=== PATIENT | female | born 1960 | race Caucasian/White ===

== ENCOUNTER → 2020-01-04 10:14 | Outpatient (BNVA) | payer BC, SELFPAY | PROVIDERS: Family Provider Family Medicine; PCP Family Medicine; Visit Provider Family Medicine | DX: I10 Essential (primary) hypertension (principal) | CPT/HCPCS: 82044; 85025 ==

== ENCOUNTER → 2020-01-31 10:34 | Outpatient (BNVA) | payer BC, SELFPAY | PROVIDERS: Family Provider Family Medicine; PCP Family Medicine; Visit Provider Family Medicine | DX: I10 Essential (primary) hypertension (principal) | CPT/HCPCS: 80048; 80061 ==

== ENCOUNTER → 2020-08-08 10:44 | Outpatient (BNVA) | payer BC, SELFPAY | PROVIDERS: Family Provider Family Medicine; PCP Family Medicine; Visit Provider Family Medicine | DX: Z01.818 Encounter for other preprocedural examination (principal); Z13.6 Encounter for screening for cardiovascular disorders | CPT/HCPCS: 71046; 80053; 85025 ==

== ENCOUNTER → 2020-08-25 11:12 | Outpatient (BNVA) | payer BC, SELFPAY | PROVIDERS: Family Provider Family Medicine; PCP Family Medicine; Visit Provider Family Medicine | DX: Z20.822 Contact with and (suspected) exposure to COVID-19 (principal) | CPT/HCPCS: 87635 ==

== ENCOUNTER → 2022-03-29 13:41 | Outpatient (BNVA) | payer BC, SELFPAY | PROVIDERS: Family Provider Family Medicine; PCP Family Medicine; Visit Provider Family Medicine | DX: I10 Essential (primary) hypertension (principal) | CPT/HCPCS: 80053; 80061; 82043; 85025 ==

== ENCOUNTER 2022-04-04 08:24 | Outpatient (CLI) | payer BC, SELFPAY ==
--- NOTE | 2022-04-04 08:36 | MM_ITS ---
WS: [id number] Bilateral screening 3D tomosynthesis digital mammogram, 04/04/2022 Clinical Data: screening mammogram Comparison: 02/01/2019, 10/29/2017, 10/28/2016 Findings: The breast parenchymal pattern shows fibroglandular tissue. No spiculated masses or clustered calcifi cations are seen. There are no secondary signs of carcinoma. MM/[place] [id number] Impression: 1. Negative bilateral mammogram unchanged. 2. Recommend annual screening mammograms. BIRADS: 1-Negative FOLLOW UP: 1 Year Follow-up The CAD cylinder checker was used.
== END 2022-04-04 08:25 | disposition home or self-care (01) ==
LOC: RAD 08:26
PROVIDERS: PCP Family Medicine; Visit Provider Family Medicine
DX: Z12.31 Encounter for screening mammogram for malignant neoplasm of breast (principal)
CPT/HCPCS: 77063; 77067

== ENCOUNTER → 2022-10-04 09:18 | Outpatient (BNVA) | payer OTHER, SELFPAY | PROVIDERS: PCP Family Medicine; Visit Provider Family Medicine | DX: I10 Essential (primary) hypertension (principal); M54.42 Lumbago with sciatica, left side; G89.29 Other chronic pain | CPT/HCPCS: 80048 ==

== ENCOUNTER → 2023-06-02 10:50 | Outpatient (BNVA) | payer OTHER, SELFPAY | PROVIDERS: PCP Family Medicine; Visit Provider Nurse Practitioner | DX: R51.9 Headache, unspecified (principal); J40 Bronchitis, not specified as acute or chronic | CPT/HCPCS: 87400 ==

== ENCOUNTER → 2023-10-24 09:30 | Outpatient (BNVA) | payer OTHER, SELFPAY | PROVIDERS: PCP Family Medicine; Visit Provider Family Medicine | DX: I10 Essential (primary) hypertension (principal); E66.9 Obesity, unspecified | CPT/HCPCS: 80053; 80061; 82043; 85025 ==

== ENCOUNTER → 2024-08-04 08:40 | Outpatient (BNVA) | payer OTHER, SELFPAY | PROVIDERS: PCP Family Medicine; Visit Provider Family Medicine | DX: I10 Essential (primary) hypertension (principal) | CPT/HCPCS: 80048; 80061 ==

== ENCOUNTER → 2024-08-14 15:23 | Outpatient (BNVA) | payer OTHER, SELFPAY | PROVIDERS: PCP Family Medicine; Visit Provider Registered Nurse Neonatal Intensive Care | DX: R50.9 Fever, unspecified (principal) | CPT/HCPCS: 87400 ==

== ENCOUNTER 2025-01-17 23:26 | Emergency (ER) | payer OTHER, SELFPAY ==
--- OUTSIDE RECORDS SUMMARY | 2025-01-10 04:34 | XMS_ITS ---
Author Organization [facility] Address [address] [place] [address] Support Name Relationship Address , Cristian Beaver Emergency Contact Unknown Unavailable Aster Beaver Guarantor Unknown [phone] Care Team Providers Care Pick Up Attendant Name Role Phone Yun El Primary Care Provider UnavailLorri Garnett Unavailable [phone] Cindy Vu Unavailable [phone] REASON FOR VISIT Wp Rx Refill Medications Medication SIG (Take, Route, Frequency, Duration) Notes Start Date End Date Status Buprenorphine HCl-Naloxone HCl 2-0.5 MG 1 film under the tongue and allow to dissolve Sublingual Once a day for 30 days Fill on 01-10-25 01/10/2025 02/09/2025 Active Encounters Encounter Location Date Provider Diagnosis [facility] [place] [address] [place] [address] 01/10/2025 Cindy Vu Opioid dependence, uncomplicated F11.20 Assessments Encounter Date Diagnosis (ICD Code) Assessment Notes Treatment Notes Treatment Clinical Notes Section Notes 01/10/2025 Opioid dependence, uncomplicated (ICD-10 - F11.20) Plan Of Treatment Medication Medication Name Sig Start Date Stop Date Notes Buprenorphine HCl-Naloxone HCl 2-0.5 MG 1 film under the tongue and allow to dissolve Sublingual Once a day for 30 days 01/10/2025 02/09/2025 Fill on 01-10-25 Next Appt Details Provider Name:Lorri carter, 03/03/2025 08:20:00 AM, [address] [place], [address], Progress Notes * Ricarda BEAVEReDOB:1960 ([age] yo F)Acc No.[id number]:01/10/2025 Patient: Aster ROME :1960 A ge:64 Y S ex:Female Address:[facility] [place] [address] * Refills Refill Buprenorphine HCl-Naloxone HCl Film, 2-0.5 MG, Sublingual, 30 films, 1 film under the tongue and allow to dissolve, Once a day, 30 days, Refills=0 Subjective: * Chief Complaints: * W p Rx Refill * Medical History: * Surgical History: * Hospitalization/Major Diagno stic Procedure: * Medications: Objective: * Vitals: * Physical Examination: Assessment: * Assessment: 1. O pioid dependence, uncomplicated - F11.20 (Primary) Plan: * Treatment: * Procedure Codes: * true * Date: Generated for Tom wolfe/Niall/Michiitting on: 0 01/17/2025 11:32 PM CDT
--- OUTSIDE RECORDS SUMMARY | 2025-01-11 06:19 | XMS_ITS ---
Author Organization [facility] Address [address] [place] [address] Support Name Relationship Address , Cristian Beaver Emergency Contact Unknown Unavailable Aster Beaver Guarantor Unknown [phone] Care Team Providers Care Raiser Helper Name Role Phone Yun El Primary Care Provider Unavaila Lorri Sanchez Unavailable [phone] Cindy Vu Unavailable [phone] REASON FOR VISIT Wp Pt Rx Refill Medications Medication SIG (Take, Route, Frequency, Duration) Notes Start Date End Date Status Buprenorphine HCl-Naloxone HCl 2-0.5 MG 1 film under the tongue and allow to dissolve Sublingual Once a day for 30 days Fill on 01-11-25 01/11/2025 02/10/2025 Active Encounters Encounter Location Date Provider Diagnosis [facility] [place] [address] [place] [address] 01/11/2025 Cindy Vu Opioid dependence, uncomplicated F11.20 Assessments Encounter Date Diagnosis (ICD Code) Assessment Notes Treatment Notes Treatment Clinical Notes Section Notes 01/11/2025 Opioid dependence, uncomplicated (ICD-10 - F11.20) Plan Of Treatment Medication Medication Name Sig Start Date Stop Date Notes Buprenorphine HCl-Naloxone HCl 2-0.5 MG 1 film under the tongue and allow to dissolve Sublingual Once a day for 30 days 01/11/2025 02/10/2025 Fill on 01-11-25 Next Appt Details Provider Name:Lorri carter, 03/03/2025 08:20:00 AM, [address] [place], [address], Progress Notes * Ricarda BEAVEReDOB:1960 ([age] yo F)Acc No.[id number]:01/11/2025 Patient: Aster ROME :1960 A ge:64 Y S ex:Female Address:[facility] [place] [address] [address] * Refills Refill Buprenorphine HCl-Naloxone HCl Film, 2-0.5 MG, Sublingual, 30 films, 1 film under the tongue and allow to dissolve, Once a day, 30 days, Refills=0 Subjective: * Chief Complaints: * W p Pt Rx Refill * Medical History: * Surgical History: * Hospitalization/Major Diagno stic Procedure: * Medications: Objective: * Vitals: * Physical Examination: Assessment: * Assessment: 1. O pioid dependence, uncomplicated - F11.20 Plan: * Treatment: * Procedure Codes: * true * Date: Generated for Tom wolfe/Niall/eTransmitting on: 0 01/17/2025 11:32 PM CDT
[2025-01-17 23:31] VITALS: BP 94/62; PULSE 89; RESP 20; TEMP 36.4; O2SAT 97; BMI 28.7
--- OUTSIDE RECORDS SUMMARY | 2025-01-17 23:32 | XMS_ITS | Encounter Summary ---
Author Organization [facility] Address [address] [place] [address] Care Team Providers Care Chief Human Resources Officer Name Role Phone [facility], External Provider Primary Care Provider [phone] Encounter Details Date Type Department Care Team (Late st Contact Info) Description 09/13/2020 Telephone [facility] Inpatient [address] [place] [phone] Eddy Wang MD [address] [place] [phone] Social History Tobacco Use Types Packs/Day Years Used Date Smoking Tobacco: Former Cigarettes 1 40 1 - 07/13/2020 Smokeless Tobacco: Never Alcohol Use Standard Drinks/Week Comments Not Currently 0 (1 standard drink = 0.6 oz pur e alcohol) Comments No Sex and Gender Information Value Date Recorded Sex Assigned at Not on file Legal Sex Female 7:18 AM ADVANCED PRACTICE PROFESSIONAL Gender Identity Not on file Sexual Orientation Not on file COVID-19 Exposure Response Date Recorded In the last month, have you been in contact with someone who was confirmed or suspected to have Coronavirus / COVID-19? No / Unsure 09/13/2020 8:35 AM ADVANCED PRACTICE PROFESSIONAL documented as of this encounter Plan of Treatment Not on file documented as of this encounter Visit Diagnoses Not on filedocumented in this encounter Care Teams Chief Human Resources Officer Relationship Specialty Start Date End Date [facility], External Provider [address] [place] [address] PCP - General Family Practice 07/13/20 documented as of this encounter
--- OUTSIDE RECORDS SUMMARY | 2025-01-17 23:32 | XMS_ITS | Clinical Summary ---
Author Organization [facility] Address [address] [place] [address] Phone Care Team Providers Care Administrative Services Officer Name Role Phone [facility], External Provider Primary Care Provider [phone] Allergies No known active allergies Medications oxyCODONE-acetam inophen (PERCOCET) 10-325 mg TabletIndication s:Status post total replacement of right hip Take 1 Tablet by mouth every 4 hours as needed for Pain, Severe. Max Daily Amount: 6 Tablets 42 Tablet 0 1 Active famotidine (PEPCID) 20 mg tablet Take 20 mg by mouth daily. 1 Active sennosides-docus ate sodium (SENNA-S) 8.6-50 mg tablet Take 1 Tablet by mouth daily. 1 Active timolol hemihydrate (BETIMOL) 0.5% solution Administer 1 Drop in right eye 2 times daily. 1 Active losartan (COZAAR) 50 mg tablet Take 50 mg by mouth daily. 1 Active hydroCHLOROthiaz esa (HYDRODIURIL) 12.5 mg tablet Take 12.5 mg by mouth daily. 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 Obesity (BMI 30.0-34.9) 09/06/2020 Resolved Problems Problem Noted Date Diagnosed Date Resolved Date Primary osteoarthritis of right hip 09/06/2020 09/07/2020 Preoperative general physical examination 09/06/2020 09/06/2020 Family History Medical History Relation Name Comments Healthy Daughter 1 Healthy Daughter 2 Unknown Father Estranged Arthritis-osteo Mother Healthy Mother Breast Cancer Sister 1 Cancer Sister 2 Multiple Myelom a Relation Name Status Comments Brother none Daughter 1 Alive Daughter 2 Alive Father Mother Alive Sister 1 Alive Sister 2 Alive Son none Social History Tobacco Use Types Packs/Day Years Used Date Smoking Tobacco: Former Cigarettes Q uit: 07/13/2020 Smokeless Tobacco: Never Alcohol Use Standard Drinks/Week Comments Not Currently 0 (1 standard drink = 0.6 oz pur e alcohol) Comments Unknown Sex and Gender Information Value Date Recorded Sex Assigned at Not on file Legal Sex Female 10:17 PM SECURITY ASSURANCE ANALYST Gender Identity Not on file Sexual Orientation Not on file Last Filed Vital Signs Vital Sign Reading Time Taken Comments Blood Pressure 133/88 11/20/2020 9:58 AM CDT Pulse 93 11/20/2020 9:58 AM CDT Temperature 36.2 C (97.1 F) 09/09/2020 8:47 AM SECURITY ASSURANCE ANALYST Respiratory Rate 16 09/09/2020 8:47 AM SECURITY ASSURANCE ANALYST Oxygen Saturation - - Inhaled Oxygen Concentration - - Weight 86.6 kg (191 lb) 11/20/2020 9:58 AM CDT Height 167.6 cm (5' 6 ) 11/20/2020 9:58 AM CDT Body Mass Index 30.83 11/20/2020 9:58 AM CDT Plan of Treatment Health Maintenance Due Date Last Done Comments DTAP/TDAP/TD VACCINES (1 - Tdap) 1979 HPV/Cotest (21-29) 1981 CERVICAL CANCER SCREENING 1990 HPV/Cotest (30-65) 1990 PAP SMEAR 1990 BREAST CANCER SCREENING 2000 COLORECTAL SCREENING 2005 Colorectal Cancer Screening 2005 FIT-DNA Q 3 years 2005 FIT/FOBT Q 1 year 2005 Flex Sig/CT Colonography Q 5 years 2005 ZOSTER VACCINE (1 of 2) 2010 INFLUENZA VACCINE (#1) 2025 RSV VACCINE (60+ or ) (1 - 1-dose 75+ series) 2035 Medical Devices Implanted Type Area High [employer] Foreign Language Tutor Device Identifier Shelf Expiration Date Model / Serial / Lot Cup Pinn Sctr Series 52mm 1217-22-052 - [id number] Implanted:Qty: 1 on 09/07/2020 by Eddy Carver MD Hip Right: Hip [employer] [id number] 07/13/2030 [id number] / / [id number] Head Fem Art/Fredi Cer Sz36 1368-62-330 - [id number] Implanted:Qty: 1 on 09/07/2020 by Eddy Carver MD Hip Right: Hip [employer] [id number] 05/13/2025 1360-36330 / / [id number] Hole Eliminator [place] 1246-000 - [id number] Implanted:Qty: 1 on 09/07/2020 by Eddy Carver MD Hip Right: Hip [employer] [id number] 07/13/2030 124000 / / [id number] Liner Pinn Altrx Poly 1221-36-052 - [id number] Implanted:Qty: 1 on 09/07/2020 by Eddy Carver MD Hip Right: Hip [employer] [id number] 08/13/2025 [id number] / / [id number] Stem Fem Actis Colr Std Sz5 1010-11-050 - [id number] Implanted:Qty: 1 on 09/07/2020 by Eddy Carver MD Hip Right: Hip [employer] [id number] 08/13/2030050 / / [id number] Insurance * Guarantor: ASTER BEAVER Account Type Relation to Patient Date of Phone Billing Address Personal/Family [address] [place] [address] RX [employer] (INTERNAL) [facility] RX [employer] RX Member Subscriber Plan / Payer (Ef fective 2020-Present) Name:Aster Beaver Adan Relation to Subscriber:Self Name:Aster Beaver Adan Subscriber ID:Not on file Payer ID:Not on file Group ID:[id number] Type:RX Commercial Address: [place], [place] Care Teams Administrative Services Officer Relationship Specialty Start Date End Date [facility], External Provider [address] [place] [address] PCP - General Family Practice 07/13/20
--- OUTSIDE RECORDS SUMMARY | 2025-01-17 23:32 | XMS_ITS | Clinical Summary ---
Author Organization [facility] Address [address] [place] [address] Phone Care Team Providers Care Dry Mop Maker Name Role Phone [facility], External Provider Primary Care Provider [phone]- [phone] Allergies No known active allergies Medications losartan (COZAAR) 50 mg tablet Take 50 mg by mouth daily. Active hydroCHLOROthiaz esa (HYDRODIURIL) 12.5 mg tablet Take 12.5 mg by mouth daily. Active famotidine (PEPCID) 20 mg tablet Take 20 mg by mouth daily. Active timolol hemihydrate (BETIMOL) 0.5% solution Administer 1 Drop in right eye 2 times daily. Active sennosides-docus ate sodium (Colace 2-In-1) 8.6-50 mg tablet Take 1 Tablet by mouth daily. Active oxyCODONE-acetam inophen (PERCOCET) 10-325 mg TabletIndication s:Status post total replacement of right hip Take 1 Tablet by mouth every 4 hours as needed for Pain, Severe. 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 Obesity (BMI 30.0-34.9) 09/06/2020 Resolved Problems Problem Noted Date Diagnosed Date Resolved Date Preoperative general physical examination 09/06/2020 09/06/2020 Primary osteoarthritis of right hip 09/06/2020 09/07/2020 Family History Medical History Relation Name Comments [...] on file Legal Sex Female 7:18 AM SOLUTION ENGINEER Gender Identity Not on file Sexual Orientation Not on file Last Filed Vital Signs Vital Sign Reading Time Taken Comments Blood Pressure 133/88 11/20/2020 9:58 AM CDT Pulse 93 11/20/2020 9:58 AM CDT Temperature 36.2 C (97.1 F) 09/09/2020 8:47 AM SOLUTION ENGINEER Respiratory Rate 16 09/09/2020 8:47 AM SOLUTION ENGINEER Oxygen Saturation 95% 09/09/2020 8:47 AM SOLUTION ENGINEER Inhaled Oxygen Concentration - - Weight 86.6 [...] series) 2035 Medical Devices Implanted Type Area Industrial Editor Device Identifier Shelf Expiration Date Model / Serial / Lot Cup Pinn Sctr Series 52mm 1217-22-052 - [id number] Implanted:Qty: 1 on 09/07/2020 by Eddy Carver MD at [facility] Hip Right: Hip [employer] [id number] 07/13/2030 [id number] / / [id number] Hole Eliminator [place] 1246-03000 - [id number] Implanted:Qty: 1 on 09/07/2020 by Eddy Carver MD at [facility] Hip Right: Hip [employer] [id number] 07/13/2030 124000 / / [id number] Liner Pinn Altrx Poly 1221-36-052 - [id number] Implanted:Qty: 1 on 09/07/2020 by Eddy Carver MD at [facility] Hip Right: Hip [employer] [id number] 08/13/2025 [id number] / / [id number] Stem Fem Actis Colr Std Sz5 1010-11-050 - [id number] Implanted:Qty: 1 on 09/07/2020 by Eddy Carver MD at [facility] Hip Right: Hip [employer] [id number] 08/13/2030 1010-11-050 / / [id number] Head Fem Art/Fredi Cer Sz36 1365-36-330 - [id number] Implanted:Qty: 1 on 09/07/2020 by Eddy Carver MD at [facility] Hip Right: Hip [employer] [id number] 05/13/2025 1365-36330 / / [id number] Insurance RX [employer] RX Member Subscriber Plan / Payer (Ef fective 2020-Present) Name:Aster Beaver Relation to Subscriber:Self Name:ASTER BEAVER Subscriber ID:Not on file Payer ID:Not on file Group ID:[id number] Type:RX Commercial Address: [facility] [employer] PL[employer] (INTERNAL) [facility] MEDICAL DESTINATIONS Advance Directives For more information, please contact: [phone] * Full Code (Latest Code Status on File) Date Activated Date Inactivated Comments 09/07/2020 12:31 PM 09/09/2020 1:12 PM * Full Code Date Activated Date Inactivated Comments 09/07/2020 6:50 AM 09/07/2020 12:30 PM Care Teams Dry Mop Maker Relationship Specialty Start Date End Date [facility], External Provider [address] [place] [address] PCP - General Family Practice 07/13/20
--- OUTSIDE RECORDS SUMMARY | 2025-01-17 23:32 | XMS_ITS | Patient Health Record ---
Author Organization [facility] Address [address] [place] [address] Support Name Relationship Address , Cristian Kent Emergency Contact Unknown Unavailable Aster Kent Guarantor Unknown [phone] Care Team Providers Care Infant Childcare Provider Name Role Phone Yun El Primary Care Provider Unavaila Lorri Sanchez Unavailable [phone] Migration, Provider Unavailable Unavailable MirellaCindy Unavailable [phone] Daniella Razo Unavailable [phone] Allergies No Known Allergies Results Component Value Reference Range Notes Urine Drug Screen (cup read) - [id number] Reviewed date:07/13/2024 01:05:15 PM Interpretation: Performing Lab: Notes/Report: BUP POS BZO POS zzzUrine Drug Screen (confir mation by instrument) - [id number] Reviewed date:07/13/2024 01:06:41 PM Interpretation: Performing Lab: Notes/Report: Tox Results Reviewed date:11/09/2024 02:28:23 PM Interpretation: Performing Lab: Notes/Report: Urine Drug Screen (cup read) - [id number] Reviewed date:12/30/2024 08:28:49 AM Interpretation: Performing Lab: Notes/Report: BUP + Urine Confirmation Panel (in strument) - [id number] Reviewed date:11/09/2024 11:03:33 AM Interpretation: Performing Lab: Notes/Report: 6-Acetylmorphine 0 <6 ng/mL This test w as developed and its performance characteristics determined by [facility]. It has not been cleared or approved by the U.S. Food and Drug Administration. 7-Aminoclonazepam 0 <60 ng/mL This test was developed and its performance characteristics determined by [facility]. It has not been cleared or approved by the U.S. Food and Drug Administration. Alprazolam 20 <60 ng/mL This test was d oracioeloped and its performance characteristics determined by [facility]. It has not been cleared or approved by the U.S. Food and Drug Administration. Amphetamine 0 <75 ng/mL This test was d eveloped and its performance characteristics determined by [facility]. It has not been cleared or approved by the U.S. Food and Drug Administration. aOH-Alprazolam 31 <60 ng/mL This test was developed and its performance characteristics determined by [facility]. It has not been cleared or approved by the U.S. Food and Drug Administration. Buprenorphine 57.6 <7.5 ng/mL This test was developed and its performance characteristics determined by [facility]. It has not been cleared or approved by the U.S. Food and Drug Administration. Norbuprenorphine 258.1 <37.5 ng/mL This test w as developed and its performance characteristics determined by [facility]. It has not been cleared or approved by the U.S. Food and Drug Administration. Carisoprodol 0 <75 ng/mL This test was d eveloped and its performance characteristics determined by [facility]. It has not been cleared or approved by the U.S. Food and Drug Administration. Codeine 0 <75 ng/mL This test was d eveloped and its performance characteristics determined by [facility]. It has not been cleared or approved by the U.S. Food and Drug Administration. EDDP 0 <75 ng/mL This test was d eveloped and its performance characteristics determined by [facility]. It has not been cleared or approved by the U.S. Food and Drug Administration. Fentanyl 0 <6 ng/mL This test was d eveloped and its performance characteristics determined by [facility]. It has not been cleared or approved by the U.S. Food and Drug Administration. Hydrocodone 0 <75 ng/mL This test was d eveloped and its performance characteristics determined by [facility]. It has not been cleared or approved by the U.S. Food and Drug Administration. Hydromorphone 0 <75 ng/mL This test was developed and its performance characteristics determined by [facility]. It has not been cleared or approved by the U.S. Food and Drug Administration. Lorazepam 0 <60 ng/mL This test was d eveloped and its performance characteristics determined by [facility]. It has not been cleared or approved by the U.S. Food and Drug Administration. MDMA 0 <75 ng/mL This test was d eveloped and its performance characteristics determined by [facility]. It has not been cleared or approved by the U.S. Food and Drug Administration. Meperidine 0.0 <37.5 ng/mL This test was d eveloped and its performance characteristics determined by [facility]. It has not been cleared or approved by the U.S. Food and Drug Administration. Meprobamate 0 <75 ng/mL This test was d eveloped and its performance characteristics determined by [facility]. It has not been cleared or approved by the U.S. Food and Drug Administration. Methamphetamine 0 <75 ng/mL This test wa s developed and its performance characteristics determined by [facility]. It has not been cleared or approved by the U.S. Food and Drug Administration. Methadone 0 <75 ng/mL This test was d eveloped and its performance characteristics determined by [facility]. It has not been cleared or approved by the U.S. Food and Drug Administration. Morphine 0 <75 ng/mL This test was d eveloped and its performance characteristics determined by [facility]. It has not been cleared or approved by the U.S. Food and Drug Administration. Nordiazepam 0 <60 ng/mL This test was d eveloped and its performance characteristics determined by [facility]. It has not been cleared or approved by the U.S. Food and Drug Administration. Norfentanyl 0 <6 ng/mL This test was d eveloped and its performance characteristics determined by [facility]. It has not been cleared or approved by the U.S. Food and Drug Administration. Normeperidine 0.0 <37.5 ng/mL This test was developed and its performance characteristics determined by [facility]. It has not been cleared or approved by the U.S. Food and Drug Administration. O-desmethyltramadol 0 <75 ng/mL This kelvin t was developed and its performance characteristics determined by [facility]. It has not been cleared or approved by the U.S. Food and Drug Administration. Oxazepam 0 <60 ng/mL This test was d eveloped and its performance characteristics determined by [facility]. It has not been cleared or approved by the U.S. Food and Drug Administration. Oxycodone 0.0 <37.5 ng/mL This test was d eveloped and its performance characteristics determined by [facility]. It has not been cleared or approved by the U.S. Food and Drug Administration. Oxymorphone 0 <75 ng/mL This test was d eveloped and its performance characteristics determined by [facility]. It has not been cleared or approved by the U.S. Food and Drug Administration. Phencyclidine 0.0 <7.5 ng/mL This test was developed and its performance characteristics determined by [facility]. It has not been cleared or approved by the U.S. Food and Drug Administration. Tapentadol 0.0 <37.5 ng/mL This test was d eveloped and its performance characteristics determined by [facility]. It has not been cleared or approved by the U.S. Food and Drug Administration. Temazepam 0 <60 ng/mL This test was d eveloped and its performance characteristics determined by [facility]. It has not been cleared or approved by the U.S. Food and Drug Administration. Tramadol 0 <75 ng/mL This test was d eveloped and its performance characteristics determined by [facility]. It has not been cleared or approved by the U.S. Food and Drug Administration. Norhydrocodone 0 <75 ng/mL This test was developed and its performance characteristics determined by [facility]. It has not been cleared or approved by the U.S. Food and Drug Administration. Noroxycodone 0 <38 ng/mL This test was d eveloped and its performance characteristics determined by [facility]. It has not been cleared or approved by the U.S. Food and Drug Administration. Pregabalin 0 <225 ng/mL This test was d eveloped and its performance characteristics determined by [facility]. It has not been cleared or approved by the U.S. Food and Drug Administration. Gabapentin >00748 <225 ng/mL This test was d eveloped and its performance characteristics determined by [facility]. It has not been cleared or approved by the U.S. Food and Drug Administration. Benzoylecgonine 0.0 <37.5 ng/mL This test wa s developed and its performance characteristics determined by [facility]. It has not been cleared or approved by the U.S. Food and Drug Administration. 4-Hydroxy Xylazine 0 <25 ng/mL This test was developed and its performance characteristics determined by [facility]. It has not been cleared or approved by the U.S. Food and Drug Administration. Urine Drug Screen (cup read) - [id number] Reviewed date:11/04/2024 08:59:44 AM Interpretation: Performing Lab: Notes/Report: BUP + BZO + Urine Drug Screen (cup read) - 30714 Reviewed date:09/09/2024 09:10:49 AM Interpretation: Performing Lab: Notes/Report: BZO + Reason For Referral No Information Medications Medication SIG (Take, Route, Frequency, Duration) Notes Start Date End Date Status Buprenorphine HCl-Naloxone HCl 2-0.5 MG 1 film under the tongue and allow to dissolve Sublingual Once a day for 30 days Fill on 01-11-25 01/11/2025 5 Active Meloxicam 15 MG 1 tablet Orally Once a day for 30 days As needed Fill 30 days from previous RX 12/30/2024 5 Active hydroCHLOROthiazide *Pick strength-form from [facility] for eRX* Active tiZANidine HCl 4 MG 1 tablet Orally Once a day for 30 days As needed Fill 30 days from previous RX 12/30/2024 5 Active Losartan *Reorder from [facility] for eRx and Interaction Alerts* Active Aspirin *Pick strength-form from [facility] for eRX* Active Problems Problem Type SNOMED Code ICD Code Onset Dates Problem Status W/U Status Risk Notes Problem Opioid dependence (80191800) Opioid dependence, uncomplicated (F11.20) Active confirmed Problem Chronic pain syndrome (724408393) Chronic pain syndrome (G89.4) 01/01/20 Active confirmed Problem Localized, primary osteoarthritis of the pelvic region and thigh (152398772) Unilateral primary osteoarthritis, right hip (M16.11) 01/01/20 Active confirmed Problem Spinal stenosis of lumbar region (41302661) Spinal stenosis, lumbosacral region (M48.07) 01/01/20 Active confirmed Problem Degeneration of lumbosacral intervertebral disc (49065730) Other intervertebral disc degeneration, lumbosacral region (M51.37) 01/01/20 Active confirmed Problem Lumbosacral radiculopathy (3933628) Radiculopathy, lumbosacral region (M54.17) 01/01/20 Active confirmed Problem Total hip replacement Prosthesis (319131462) Presence of right artificial hip joint (Z96.641) 01/01/20 24 Active confirmed Vital Signs Height-cm 167.64 cm 12/30/2024 Weight-kg 83.92 kg 12/30/2024 Height 66 in 12/30/2024 Weight 185 lbs 12/30/2024 BMI 29.86 kg/m2 12/30/2024 Encounters Encounter Location Date Provider Diagnosis [facility] [address] [address] 03/11/2024 Lorri Gallardo [facility] [address] [address] 05/13/2024 Lorri Gallardo [facility] [address] [address] 07/09/2024 Cindy Vu Opioid dependence, uncomplicated F11.20 ; Chronic pain syndrome G89.4 ; Degeneration of intervertebral disc of lumbosacral region with discogenic back pain M51.370 ; Radiculopathy, lumbosacral region M54.17 ; Spinal stenosis, lumbosacral region M48.07 ; Pain in right leg M79.604 ; Unilateral primary osteoarthritis, right hip M16.11 and Pain in right hip M25.551 [facility] [place] [address] [place] [phone] 09/09/2024 Lorri Gallardo Opioid dependence, uncomplicated F11.20 and Chronic pain syndrome G89.4 [facility] [place] [address] [place] [phone] 11/04/2024 Lorri Gallardo Opioid dependence, uncomplicated F11.20 and Chronic pain syndrome G89.4 [facility] [place] [address] [place] [address] 12/30/2024 Lorri Gallardo Opioid dependence, uncomplicated F11.20 and Chronic pain syndrome G89.4 [facility] 0 0 05/08/2024 Provider Migration [facility] 0 0 05/09/2024 Provider Migration [facility] [place] [address] [place] [place] [place] [address] 07/12/2024 Cindy Vu [facility] [address] [place] [address] 08/12/2024 Cindy Vu [facility] [place] [address] [place] [place] [place] [address] 09/09/2024 Daniella Orellana-Gretchen e [facility] [place] [address] [place] [address] 11/04/2024 Cindy Vu [facility] [place] [address] [place] [address] 12/30/2024 Cindy Vu [facility] [place] [address] [place] [address] 01/07/2025 Cindy uV Opioid dependence, uncomplicated F11.20 [facility] [place] [address] [place] [address] 01/10/2025 Cindy Vu Opioid dependence, uncomplicated F11.20 [facility] [place] [address] [place] [address] 01/10/2025 Cindy Vu Opioid dependence, uncomplicated F11.20 [facility] [place] [address] [place] [address] 01/11/2025 Cindy Vu Opioid dependence, uncomplicated F11.20 [facility] [place] [address] [place] [place] [address] 01/11/2025 Cindy Mirella Opioid dependence, uncomplicated F11.20 Assessments Encounter Date Diagnosis (ICD Code) Assessment Notes Treatment Notes Treatment Clinical Notes Section Notes 07/09/2024 Opioid dependence, uncomplicated (ICD-10 - F11.20) 07/09/2024 Chronic pain syndrome (ICD-10 - G89.4) 01/10/2025 Opioid dependence, uncomplicated (ICD-10 - F11.20) 01/10/2025 Opioid dependence, uncomplicated (ICD-10 - F11.20) 01/11/2025 Opioid dependence, uncomplicated (ICD-10 - F11.20) 01/11/2025 Opioid dependence, uncomplicated (ICD-10 - F11.20) 09/09/2024 Opioid dependence, uncomplicated (ICD-10 - F11.20) 09/09/2024 Chronic pain syndrome (ICD-10 - G89.4) 11/04/2024 Opioid dependence, uncomplicated (ICD-10 - F11.20) Patient notes satisfaction with current treatment regimen and with response. The information in the [place] Prescription Monitoring Program is consistent. UDS for most recent clinic visit is confirmed as consistent after review by reference lab, showing only currently prescribed medications and appropriate metabolites. The buprenorphine and metabolite ratio indicated consistent compliance with dose schedule. UDS at point of service testing today continues to indicate consistent compliance. Patient will return to clinic in one month to continue maintenance phase therapy and monitoring levels. RECOMMEND URINE TESTING TODAY Urine drug screening will be performed today to monitor compliance with opioid therapy or to serve as a baseline screen for a patient who may be a candidate for opioid therapy in the future, pending UDS results. We will monitor with in-office testing (rapid testing) today and review the results prior to dispensing prescription. All positive results will be sent for quantitative analysis to ensure accuracy and quantify amounts. Any expected positive results that return negative will also be sent for quantitative analysis. Any questionable read or any medication we cannot test for in the office confidently will be sent for quantitative analysis, as well. Patient has been made aware of this policy and agrees to abide by our urine testing policy. 12/30/2024 Opioid dependence, uncomplicated (ICD-10 - F11.20) Patient notes satisfaction with current treatment regimen and with response. The information in the [place] Prescription Monitoring Program is consistent. UDS for most recent clinic visit is confirmed as consistent after review by reference lab, showing only currently prescribed medications and appropriate metabolites. The buprenorphine and metabolite ratio indicated consistent compliance with dose schedule. UDS at point of service testing today continues to indicate consistent compliance. Patient will return to clinic in one month to continue maintenance phase therapy and monitoring levels. URINE TESTING TODAY; POINT OF SERVICE Urine drug screening will be performed today to monitor compliance with opioid therapy or to serve as a baseline screen for a patient who may be a candidate for opioid therapy in the future, pending UDS results. We will monitor with in-office testing (rapid testing) today and review the results prior to dispensing prescription, as well. Patient has been made aware of this policy. 12/30/2024 Chronic pain syndrome (ICD-10 - G89.4) 01/07/2025 Opioid dependence, uncomplicated (ICD-10 - F11.20) 11/04/2024 Chronic pain syndrome (ICD-10 - G89.4) 07/09/2024 Degeneration of intervertebral disc of lumbosacral region with discogenic back pain (ICD-10 - M51.370) 07/09/2024 Radiculopathy, lumbosacral region (ICD-10 - M54.17) 07/09/2024 Spinal stenosis, lumbosacral region (ICD-10 - M48.07) 07/09/2024 Pain in right leg (ICD-10 - M79.604) 07/09/2024 Unilateral primary osteoarthritis, right hip (ICD-10 - M16.11) 07/09/2024 Pain in right hip (ICD-10 - M25.551) Plan Of Treatment Next Appt Details Provider Name:Lorri carter, 03/03/2025 08:20:00 AM, [address] [place], [address], Insurance Providers Payer Name Payer Address Payer Phone Subscriber Number Group Number Insured Name Patient Relationship to Insured Coverage Start Date Coverage End Date [facility] [address] [address] [place] [address] [id number] Aster Kent Self - patient is the insured Medical (General) History Surgical History Surgery Date(Month/Year) corneal transplant Rt. total hip - [facility]. [place] - Dr Alice Srivastava Since 09/07/2020
[2025-01-18] VITALS (8 sets, daily range): BP systolic 116–131; BP diastolic 77–84; PULSE 98–101; RESP 10–19; TEMP 37.1; O2SAT 93–99
--- NOTE | 2025-01-18 00:08 | ED_ITS ---
HPI - Extremity Problem General: Chief complaint: Extremity Injury, Upper Stated complaint: Fell hurt L arm and hit top of head Time Seen by Provider: 01/17/25 23:49 History of Present Illness: Patient presents approximately 1 hour after falling and hitting their arm and head against a brick wall. Patient reports loss of consciousness following impact with the wall, though duration is not specified. Patient states they lost balance leading to the fall. Last oral intake was a sandwich at approximately 8:00 PM. Patient denies any history of problems with anesthesia. Related Data Previous Rx's ?Medication ?Instructions ?Recorded bupropion HCl 150 mg tablet,12 hr 150 mg PO DAILY #90 tabs 08/04/24 sustained-release hydrochlorothiazide 25 mg tablet 25 mg PO DAILY #90 ta bs 08/04/24 losartan 50 mg tablet 50 mg PO DAILY #90 tabs 07/15 09/07 meloxicam 15 mg tablet 15 mg PO DAILY #90 tabs 07/15 09/07 molnupiravir 200 mg capsule (EUA) 800 mg (4 x 200 mg) PO Q12H 5 days 08/14/24 #40 caps valacyclovir 1 gram tablet 1,000 mg PO BID #6 tabs (Valtrex) gabapentin 300 mg capsule 300 mg PO TID #270 caps 08/15 03/07 hydrocodone 5 mg-acetaminophen 325 1 tab PO Q6H PRN pa in #14 tabs 01/18/25 mg tablet Allergies Allergy/AdvReac Type Severity Reaction Status Date / Time hydrocodone AdvReac Mild nausea Verified 01/18/25 02:21 Review of Systems General: Reports: 10 or more systems reviewed and unremarkable except in HPI and below PFSH ED PFSH: Medical History (Updated 01/18/25 @ 02:28 by Dayton Garcia DO) Chronic low back pain with sciatica Essential hypertension Surgical History H/O section History of eye surgery History of back surgery Family History Other Cancer Diabetes Social History (Updated 08/04/24 @ 08:21 by Osmel Pierson MD) Smoking and tobacco/nicotine status: former use of tobacco/nicotine Quit status (tobacco/nicotine): has quit using Year quit tobacco: 2020 Former quit date comment: 35PY Alcohol intake: never Substance/Drug Use: never Physical Exam Const: COMMON NORMALS: no acute distress, patient oriented x3, alert and well nourished HENMT: COMMON NORMALS: normocephalic HEAD & SCALP: normocephalic Eye: COMMON NORMALS: Equal, round and reactive pupils present, EOMs intact bilaterally and conjunctivae normal CONJUNCTIVA: Yes conjunctivae normal PUPIL: Yes Equal, round and reactive pupils present Resp: COMMON NORMALS: normal respiratory effort, No retractions, No use of accessory muscles, clear to auscultation bilaterally and percussion normal AUSCULTATION: clear to auscultation bilaterally PERCUSSION: percussion normal GI: COMMON NORMALS: Normal to inspection, nondistended, normoactive bowel sounds present, Soft to palpation, non-tender, No hepatosplenomegaly present, no masses and no bruits PALPATION: Yes Soft to palpation and Yes No hepatosplenomegaly present Extremity: NARRATIVE EXTREMITY EXAM: Obvious deformity of the left wrist. Pulses intact. Neuro: COMMON NORMALS: patient oriented x3 SENSORIUM/ORIENTATION: Yes alert Skin: COMMON NORMALS: no rashes or lesions noted, turgor normal and no jau ndice GENERAL SKIN EXAM: no rashes or lesions noted and turgor normal Course Vital Signs: Vital signs: Vital Signs Temperature 97.6 F 01/17/25 23:31 Pulse Rate 98 01/18/25 01:03 Respiratory Rate 13 01/18/25 01:03 Blood Pressure 127/79 01/18/25 01:03 Pulse Oximetry 96 01/18/25 01:03 Oxygen Delivery Me thod Room Air 01/18/25 01:03 MDM - Extremity (Nontraumatic) Medical Decision Making Patient has both bone distal forearm fracture with some significant displacement. We talked about the risk benefits alternatives and complications of a closed reduction and she was agreeable. Conscious sedation using propofol with the proper team members including respiratory assembled. This was easily reduced and then she was placed in a sugar-tong. We talked about the potential complications of this type of fracture. Patient was neurovascularly intact both pre and post sling application. Lab Data Radiology Impressions Wrist X-Ray 01/18/25 00:21 IMPRESSION: 1. Markedly comminuted intra-articular fracture of the distal left radius with mild dorsal displacement of multiple bone fragments and mild impaction and approximately 40 degrees of dorsal angulation of the distal fracture fragment. 2. Comminuted fracture of the base of the left ulnar styloid with 6 mm of lateral displacement of the distal fracture fragment. 3. Moderate soft tissue swelling at the distal left forearm and wrist. All radiology interpretation(s) finalized by discharge ED provider radiology interpretation(s): Comminuted displaced distal radial fracture Discharge Plan Discharge Patient Disposition: Home Clinical Impression: Distal radius fracture, left Condition: Stable Prescriptions: New hydrocodone-acetaminophen 5-325 mg tablet 1 tab PO Q6H PRN (Reason: pain) Qty: 14 0RF No Action bupropion HCl 150 mg tablet sustained-release 12 hr 150 mg PO DAILY Qty: 90 1RF hydrochlorothiazide 25 mg tablet 25 mg PO DAILY Qty: 90 1RF losartan 50 mg tablet 50 mg PO DAILY Qty: 90 1RF meloxicam 15 mg tablet 15 mg PO DAILY Qty: 90 1RF molnupiravir 200 mg capsule 800 mg PO Q12H 5 Days Qty: 40 0RF bupivacaine (PF) 0.5 % (5 mg/mL) solution 5 mg Infiltration ONCE Qty: 1 0RF lidocaine (PF) 10 mg/mL (1 %) solution 10 mg SUBCUT ONCE Qty: 1 0RF valacyclovir [Valtrex] 1 gram tablet 1,000 mg PO BID Qty: 6 4RF gabapentin 300 mg capsule 300 mg PO TID Qty: 270 3RF Discharge Orders: Discharge ED (Routine); Ordered 01/18/25 Ordered By: Dayton Garcia Referrals: Osmel Pierson MD [Primary Care Provider, [facility]] Discharge Diet: Advance as tolerated Discharge Activity: Resume usual activity Patient Instructions: Opioid Safety, Pain Management, Patient Portal & Elsie Instructions Activity Restrictions/Additional Instructions: 1. Wear sling and take ibuprofen and/or Tylenol as directed if severe pain take the prescription for hydrocodone but do not exceed more than 3000 mg of Tylenol in a given day. 2. Needs orthopedic follow-up in the next 3 to 5 days. Return here if worse or other significant concerns. Print Language: Portuguese Coding Level of Care Code ED Dentist/Owner for Jamie Mensah
--- NOTE | 2025-01-18 00:21 | XRR_ITS ---
PROCEDURE INFORMATION: Exam: XR Left Wrist Exam date and time: 01/18/2025 12:26 AM Age: 64 years old Clinical indication: Injury or trauma; Fall; Blunt trauma (contusions or hematomas); Wrist; Left; Additional info: Pain TECHNIQUE: Imaging protocol: Radiologic exam of the left wrist. Views: 1 or 2 views. COMPARISON: No relevant prior studies available. FINDINGS: Bones/joints: Markedly comminuted intra-articular fracture of the distal left radius with mild dorsal displacement of multiple bone fragments and mild impaction and approximately 40 degrees of dorsal angulation of the distal fracture fragment. Comminuted fracture of the base of the left ulnar styloid with 6 mm of lateral displacement of the distal fracture fragment. No dislocation. Normal bone mineralization. Soft tissues: Moderate soft tissue swelling at the distal left forearm and wrist. No soft tissue emphysema. No radiopaque foreign body. XR/XR wrist LT w scaphoid [id number] IMPRESSION: 1. Markedly comminuted intra-articular fracture of the distal left radius with mild dorsal displacement of multiple bone fragments and mild impaction and approximately 40 degrees of dorsal angulation of the distal fracture fragment. 2. Comminuted fracture of the base of the left ulnar styloid with 6 mm of lateral displacement of the distal fracture fragment. 3. Moderate soft tissue swelling at the distal left forearm and wrist.
--- NOTE | 2025-01-18 03:00 | PC.NURSE ---
Conscious sedation performed with Dr Garcia, [facility], [facility] and this RN. Left radial fracture reduced, sugar tong splint applied. Arm placed in sling. patient tolerated well.
[2025-01-18] MEDS: HYDROcodone-acetaminophen 5-325 mg Tablet 1 TAB PO (03:31)
[2025-01-18] MEDS: oxyCODONE-APAP 5-325 mg Tablet 1 TAB PO (03:39)
--- NOTE | 2025-01-18 04:10 | PC.NURSE ---
Patient was allergic to Hydrocodone and was not determined until after package was opened. Hydrocodone was wasted with witness Byron Garcia RN. Dr Garcia was notified and prescription that was printed for Hydrocodone was put in the shred box and a hand written prescription for Oxycodone was given to the patient. A photo copy of prescription was placed with the chart.
--- NOTE | 2025-01-19 12:02 | DCPLANNER ---
Message sent to Ortho for follow up-Patient has both bone distal forearm fracture with some significant displacement. We talked about the risk benefits alternatives and complications of a closed reduction and she was agreeable. Conscious sedation using propofol with the proper team members including respiratory assembled. This was easily reduced and then she was placed in a sugar-tong. We talked about the potential complications of this type of fracture. Patient was neurovascularly intact both pre and post sling application.
== END 2025-01-18 04:25 | disposition home or self-care (01) ==
PROVIDERS: Emergency Provider Family Medicine; PCP Family Medicine
DX: S52.502A Unspecified fracture of the lower end of left radius, initial encounter for closed fracture (principal); Z87.891 Personal history of nicotine dependence; I10 Essential (primary) hypertension; W19.XXXA Unspecified fall, initial encounter
CPT/HCPCS: 73110; 99285; J9999

== ENCOUNTER → 2025-01-24 14:19 | Outpatient (BNVA) | payer OTHER, SELFPAY | PROVIDERS: PCP Family Medicine; Visit Provider Orthopaedic Surgery | DX: M25.532 Pain in left wrist (principal); S52.502A Unspecified fracture of the lower end of left radius, initial encounter for closed fracture; S52.532A Colles' fracture of left radius, initial encounter for closed fracture; W18.39XA Other fall on same level, initial encounter | CPT/HCPCS: 73110 ==

== ENCOUNTER 2025-01-26 10:56 | Day surgery (SDC) | payer OTHER, SELFPAY ==
[2025-01-26] VITALS (17 sets, daily range): BP systolic 111–156; BP diastolic 56–97; PULSE 74–105; RESP 16–18; TEMP 36.3–36.6; O2SAT 96–100; BMI 29.6
[2025-01-26] MEDS: ondansetron 2 mg/ML SDV 2 mL 4 MG IVP (11:51)
--- NOTE | 2025-01-26 12:02 | W.PM.OPSUD ---
Surgery/Procedure H&P Update DATE OF PROCEDURE: January 26, 2025 DATE H&P PERFORMED: 01/24/25 H&P UPDATE INFORMATION: I have reviewed H&P completed within last 30 days, I have examined patient prior to procedure and No changes to prior documentation PREOP DIAGNOSIS: Left wrist fracture PLANNED PROCEDURE: Operation Date: 01/26/25 13:15 Proposed Procedures p LEFT Distal Radius Closed Reduction Percutaneous Pin Wrist(Left) - Dennis Florence MD
--- NOTE | 2025-01-26 12:04 | ANES.PREANE2 ---
Pre-Anesthetic Assessment Height/Weight: Height 5 ft 5 in Weight 178 lb Temp Pulse Resp BP Pulse Ox O2 Del Method 97.3 F L 105 H 18 111/80 99 Room Air 01/26/25 11:26 01/26/25 11:26 01/26/25 11:26 01/26/25 11:26 01/26/25 11:01/26/25 11:31 Preop Diagnosis: Left wrist fracture Operation Date: 01/26/25 13:15 Proposed Procedures p LEFT Distal Radius Closed Reduction Percutaneous Pin Wrist(Left) - Dennis Florence MD Was Beta Glen taken within 24 hours: N/A Was Clonidine taken within 24 hours: N/A Last intake: Intake Last Liquid Date 01/26/25 Last Liquid Time 03:00 Last Solid Date 01/25/25 Last Solid Time 15:00 Social No alcohol and No tobacco Exam alert, oriented x 3 and regular rate & rhythm Airway Submandibular: within normal limits Cervical ROM: within normal limits Mallampati: Class II Dentition: false Anesthetic Plan ASA status: 3 Anesthesia: General Other: No prior issues with anesthesia NPO since yesterday evening History of hypertension on hydrochlorothiazide and losartan. Preop BP 111/80 Former smoker Patient is actively having numbness/tingling in surgical extremity. Plan for general anesthesia possible postop nerve block Medications/Allergies Home Medications ?Medication ?Instructions ?Recorded ?Confirmed ?Last Taken ?Type bupropion HCl 150 mg tablet,12 hr 150 mg PO DAILY #90 tabs 08/04/24 01/25/25 01/21/25 Rx sustained-release hydrochlorothiazide 25 mg tablet 25 mg PO DAILY #90 tabs 08/04/24 01/25/25 01/23/25 Rx losartan 50 mg tablet 50 mg PO DAILY #90 tabs 08/04/24 01/25/25 01/23/25 Rx meloxicam 15 mg tablet 15 mg PO DAILY #90 tabs 08/04/24 01/25/25 01/18/25 Rx valacyclovir 1 gram tablet 1,000 mg PO BID #6 tabs 09/08/24 01/25/25 01/23/25 Rx (Valtrex) gabapentin 300 mg capsule 300 mg PO TID #270 caps 09/10/24 01/25/25 01/24/25 Rx hydrocodone 5 mg-acetaminophen 325 1 tab PO Q6H PRN pain #14 tabs 01/18/25 01/25/25 01/24/25 Rx mg tablet ondansetron HCl 4 mg tablet 4 mg PO PRN PRN Nausea 01/24/25 01/25/25 01/11/25 History oxycodone-acetaminophen 5 mg-325 1 tab PO Q6H PRN pain 3 days #10 01/24/25 01/25/25 Unknown Rx mg tablet tabs oxycodone-acetaminophen 5 mg-325 tab PO Q6H PRN pain 01/24/25 01/24/25 01/24/25 16:26 History mg tablet Allergies Allergy/AdvReac Type Severity Reaction Status Date / Time hydrocodone AdvReac Mild ALGY-Rash Verified 01/26/25 11:11 Current Medications Generic Name Dose Route Start Last Admin Trade Name Freq PRN Reason Stop Dose Admin Sodium Chloride 1,000 mls @ 30 mls/hr 01/26/25 11:15 01/26/25 11:49 Sodium Chloride 0.9% IV 01/27/25 11:14 30 mls/hr .Q24H [place] Administration Ondansetron HCl 4 mg 01/26/25 11:04 01/26/25 11:51 Ondansetron 2 Mg/Ml Sdv 2 Ml IVP 4 mg Q5M PRN Administration NAUSEA AND VOMITING PFSH Anesthesia Medical History (Updated 01/26/25 @ 00:00 by SHARLENE Pro) Chronic low back pain with sciatica Essential hypertension Surgical History H/O section History of eye surgery History of back surgery Family History Other Cancer Diabetes Social History (Updated 08/04/24 @ 08:21 by Osmel Pierson MD) Smoking and tobacco/nicotine status: former use of tobacco/nicotine Quit status (tobacco/nicotine): has quit using Year quit tobacco: 2020 Former quit date comment: 35PY Alcohol intake: never Substance/Drug Use: never
[2025-01-26] MEDS: ceFAZolin 2,000 mg SDV 2000 MG IVP (12:09)
--- NOTE | 2025-01-26 12:52 | P.OP_ITS ---
Operative Report Date of procedure: January 26, 2025 Surgeon: Dennis Florence MD Procedure: Preoperative diagnosis: Fracture distal left radius dorsally angulated Postoperative diagnosis: Same Procedure: Closed reduction with percutaneous pinning of distal left radius fracture Surgeon: Dennis Florence MD Anesthesia: General, with planned postoperative nerve block Indications: Aster is a 64-year-old white female who fell approximately a week to 10 days ago injuring her left wrist. She was seen in the local emergency room and had closed reduction and splinting of her wrist fracture. She is referred on the orthopedic clinics where I saw her this week and reviewed the x- rays. It appears that her distal radius is still dorsally angulated and could be improved in position therefore at this time I have offered her a closed reduction percutaneous pinning of the wrist to help to obtain better position for healing and functional for purposes. All risk benefits treatment alternatives have been discussed with she and her family and they are agreeable to this at this time. Procedure: After obtaining the consent patient was taken to the operating room placed on the operative table supine position general anesthetic administered. Once good anesthesia was achieved left upper extremity had pneumatic cuff placed about it. Left upper extremities prepped and draped usual fashion. After surgical timeout under gentle manipulation and traction fracture was reduced confirmed under fluoroscopic evaluation. Subsequently two 0.045 K wires were placed from radial styloid going distal and ulnarly across the fracture site and confirmed under fluoroscopic evaluation to append the fracture in place. Once in place sugar-tong splint was applied with appropriate molding. Repeat fluoroscopy demonstrated continued reduction of the fracture fragments and good placement of the pins. Patient was then awakened transferred to cover room stable condition
[2025-01-26] MEDS: fentaNYL 50 mcg/mL INJ 2mL IVP ×2 (13:05→13:20)
--- NOTE | 2025-01-26 13:16 | ANES.PROC ---
Anesthesia Procedures Procedure/Date: 01/26/25 Left supraclavicular nerve block for postop pain Nerve Block ^: Nerve Block 1: Main Anesthesia: general anesthesia Time Out Performed: Yes Consent: requested by attending/covering physician and from patient Nerve block location: supraclavicular Anesthesia monitors applied: pulse oximetry, EKG, BP cuff and oxygen Nerve block position: supine Anesthetic Used: ropivicaine 0.5% Amount of anesthesia used (mL): 25 Ultrasound used to: recognize landmarks Nerve Stimulator Used?: Yes Interscalene/Femoral BLK: other needle (pjunk 4inch) Injection: neg aspiration of heme Patient Tolerated Procedure: well Complications: none
[2025-01-26] MEDS: HYDROmorphone 1 mg/mL INJ 1ml 0.5 MG IVP (13:35)
--- NOTE | 2025-01-26 14:40 | ANE.PACU2 ---
Inpatient post-anesthesia follow up: Airway intact: Yes Vital signs: Temperature 97.8 F Pulse Rate 78 Respiratory Rate 17 Blood Pressure 118/76 Pulse Oximetry 96 Oxygen Delivery Me thod Room Air Oxygen Flow Rate Fraction of Inspir ed Oxygen Hydration adequate: Yes Nausea and vomiting: No Pain level: 1 Mental status: Baseline
== END 2025-01-26 14:40 | disposition home or self-care (01) ==
PROVIDERS: PCP Family Medicine; Visit Provider Orthopaedic Surgery
PROC: (CPT 25606; principal; 2025-01-26 13:05)
DX: S52.502A Unspecified fracture of the lower end of left radius, initial encounter for closed fracture (principal); W22.01XA Walked into wall, initial encounter; I10 Essential (primary) hypertension; Z87.891 Personal history of nicotine dependence
CPT/HCPCS: 25606; 73100; 76000; 77001; A4216; C1713; J0690; J1100; J1171; J2250; J2371; J2405; J2704; J3010; J3490; J7030

== ENCOUNTER → 2025-02-10 13:15 | Outpatient (BNVA) | payer OTHER, SELFPAY | PROVIDERS: PCP Family Medicine; Visit Provider Orthopaedic Surgery | DX: S52.532D Colles' fracture of left radius, subsequent encounter for closed fracture with routine healing (principal); X58.XXXD Exposure to other specified factors, subsequent encounter | CPT/HCPCS: 73110 ==

== ENCOUNTER → 2025-03-03 13:42 | Outpatient (BNVA) | payer OTHER, SELFPAY | PROVIDERS: PCP Family Medicine; Visit Provider Orthopaedic Surgery | DX: S62.102D Fracture of unspecified carpal bone, left wrist, subsequent encounter for fracture with routine healing (principal); X58.XXXD Exposure to other specified factors, subsequent encounter | CPT/HCPCS: 73110 ==

== ENCOUNTER → 2025-03-31 11:13 | Outpatient (BNVA) | payer OTHER, SELFPAY | PROVIDERS: PCP Family Medicine; Visit Provider Orthopaedic Surgery | DX: S62.102D Fracture of unspecified carpal bone, left wrist, subsequent encounter for fracture with routine healing (principal); X58.XXXD Exposure to other specified factors, subsequent encounter | CPT/HCPCS: 73110 ==